=== PATIENT | male | born 1940 | race Caucasian/White ===

== ENCOUNTER 2016-09-27 16:10 | Inpatient (IN) | payer MEDICARE, OTHER ==
[~2016-09-27] VITALS: Ht 182.9 cm; Wt 86.2 kg
[2016-09-27 17:13] LABS: HEMOGLOBIN 13.6 gm/dl (14.0-17.5); RED BLOOD COUNT 4.81 M/UL (4.20-5.50); WHITE BLOOD COUNT 13.5 K/UL (4.5-11.0)
[2016-09-28 03:09] LABS: RED BLOOD COUNT 4.58 M/UL (4.20-5.50); WHITE BLOOD COUNT 9.6 K/UL (4.5-11.0)
[2016-09-28] MEDS ORDERED: OXYCODONE HCL5 MG PO ×2 (03:13→03:31)
[2016-09-28] MEDS ORDERED: ANTACID LIQUID355 ML PO (03:13)
[2016-09-28] MEDS ORDERED: FLOMAX 0.4 MG0.4 MG PO (03:14)
[2016-09-28] MEDS ORDERED: NORVASC 5 MG TAB5 MG PO (03:14)
[2016-09-28] MEDS ORDERED: OMEPRAZOLE20 M1 PO (03:14)
[2016-09-28] MEDS ORDERED: ASPIRIN CHEWABL81 MG PO (03:27)
[2016-09-28] MEDS ORDERED: DAILY MULTIPLE1 EAC1 PO (03:27)
[2016-09-28] MEDS ORDERED: ESCITALOPRAM OX20 MG PO (03:28)
[2016-09-28] MEDS ORDERED: FLOVENT DISKUS50 MCG INH (03:29)
[2016-09-28] MEDS ORDERED: CARVEDILOL3.125 MG PO (03:29)
[2016-09-28] MEDS ORDERED: MELATONIN3 MG PO (03:29)
[2016-09-28] MEDS ORDERED: GABAPENTIN100 MG PO (03:30)
[2016-09-28] MEDS ORDERED: DONEPEZIL HCL10 MG PO (03:30)
[2016-09-28] MEDS ORDERED: LEVEMIR100 UNIT/1 SQ (03:32)
[2016-09-29 04:46] LABS: HEMOGLOBIN 14.4 gm/dl (14.0-17.5); WHITE BLOOD COUNT 9.7 K/UL (4.5-11.0)
[2016-09-29 04:47] LABS: RED BLOOD COUNT 5.05 M/UL (4.20-5.50)
[2016-09-30 05:20] LABS: HEMOGLOBIN 14.5 gm/dl (14.0-17.5); RED BLOOD COUNT 5.11 M/UL (4.20-5.50); WHITE BLOOD COUNT 7.6 K/UL (4.5-11.0)
== END 2016-09-30 18:31 | DRG 292 ==
LOC: ER1 16:10 → ZEROF 23:30 → MED SURG 4 23:30
PROVIDERS: Emergency Medicine; Family Medicine; ADMIT Internal Medicine
DX: I50.33 Acute on chronic diastolic (congestive) heart failure (principal); N39.0 Urinary tract infection, site not specified; J68.0 Bronchitis and pneumonitis due to chemicals, gases, fumes and vapors; N18.4 Chronic kidney disease, stage 4 (severe); F03.90 Unspecified dementia, unspecified severity, without behavioral disturbance, psychotic disturbance, mood disturbance, and anxiety; K21.9 Gastro-esophageal reflux disease without esophagitis; E11.22 Type 2 diabetes mellitus with diabetic chronic kidney disease; E11.65 Type 2 diabetes mellitus with hyperglycemia; N18.9 Chronic kidney disease, unspecified; N40.0 Benign prostatic hyperplasia without lower urinary tract symptoms; E78.5 Hyperlipidemia, unspecified; F02.80 Dementia in other diseases classified elsewhere, unspecified severity, without behavioral disturbance, psychotic disturbance, mood disturbance, and anxiety; G89.4 Chronic pain syndrome; I50.32 Chronic diastolic (congestive) heart failure; I44.30 Unspecified atrioventricular block; R53.81 Other malaise; Z91.81 History of falling; Z88.6 Allergy status to analgesic agent; Z79.82 Long term (current) use of aspirin; Z79.899 Other long term (current) drug therapy; Z87.891 Personal history of nicotine dependence; Z84.89 Family history of other specified conditions; Z82.3 Family history of stroke; Z82.49 Family history of ischemic heart disease and other diseases of the circulatory system; Z80.1 Family history of malignant neoplasm of trachea, bronchus and lung; Z79.4 Long term (current) use of insulin
CPT/HCPCS: ECHO; 36415; 36600; 71010; 80048; 80053; 80061; 81001; 82550; 82553; 82803; 82962; 83605; 83735; 83874; 83880; 84100; 84443; 84484; 85025; 85027; 87040; 87086; 93005; 93306; 96365; 96372; 96375; 97110; 97116; 97535; 99285; J0360; J1650; J1815; J1940; J1956; J2185; J2405; J2543; J7030; J7050